=== PATIENT | female | born 1980 | race Caucasian/White ===

== ENCOUNTER → 2023-04-22 | Outpatient (CLI) | payer OTHER ==
[2023-04-27 16:09] LABS: HPV 16 Negative (Negative); HPV 18 Negative (Negative); HPV OTHER HR TYPES Negative (Negative)
== END | disposition home or self-care (01) ==
LOC: LAB SHORT 19:03 → LAB 19:03
PROVIDERS: Obstetrics & Gynecology
DX: Z01.419 Encounter for gynecological examination (general) (routine) without abnormal findings (principal)
CPT/HCPCS: 87624; G0145

== ENCOUNTER 2023-04-30 05:47 | Emergency (ER) | payer OTHER ==
[~2023-04-30] VITALS: Ht 162.6 cm; Wt 72.6 kg
[2023-04-30 06:28] LABS: Hematocrit 48.9 % (33.0-51.0); Hemoglobin 16.6 g/dL (11.5-16.0); Mean Corpuscular HGB 31.6 pg (26.0-34.0); Mean Corpuscular HGB Conc 33.9 g/dL (31.5-36.5); Mean Corpuscular Volume 93 fL (80-100); Mean Platelet Volume 9.4 fL (9.1-12.4); Platelet Count 229 K/mm3 (150-400); RDW Coefficient Variation 12.2 % (11.7-14.2); RDW Standard Deviation 42.2 fL (35.1-46.3); Red Blood Cell Count 5.26 M/mm3 (3.80-5.20); White Blood Cell Count 7.97 K/mm3 (4.00-11.30)
[2023-04-30 06:48] LABS: Albumin, Blood 4.6 g/dL (3.4-5.0); Bilirubin, Total 0.7 mg/dL (0.1-1.0); Bun/Creatinine Ratio 10.2 (12.0-20.0); Calcium, Blood 9.8 mg/dL (8.5-10.1); Creatinine, Blood 2.16 mg/dL (0.40-1.00); Globulin, Blood 4.8 g/dL (2.2-4.0); Potassium, Blood 4.5 mmol/L (3.5-5.5); Total Protein, Blood 9.4 g/dL (6.4-8.2)
[2023-04-30 07:02] LABS: BAND PERCENT MAN 11 % (0-8); BASOPHILS PERCENT MAN 0 % (0-2); EOSINOPHILS PERCENT MAN 0 % (0-6); LYMPHOCYTES ABSOLUTE MAN 0.15 K/mm3 (0.84-5.20); LYMPHOCYTES PERCENT MAN 2 % (21-46); MONOCYTES ABSOLUTE MAN 0.15 K/mm3 (0.16-1.47); MONOCYTES PERCENT MAN 2 % (4-13); NEUTROPHILS ABSOLUTE MAN 7.65 K/mm3 (1.96-9.15); SEG NEUTROPHILS PERCENT MAN 85 % (41-73); TOTAL CELLS COUNTED 100
[2023-04-30 12:03] LABS: Source, Urine Clean Catch
[2023-04-30 12:06] LABS: Bilirubin, Urine Neg (Neg); Blood, Urine 2+ (Neg); Color, Urine Yellow (P-Yellow); Glucose Qualitative, Urine Neg (Neg); Ketones, Urine Neg (Neg); Leukocyte Esterase, Urine Neg (Neg); Nitrite, Urine Neg (Neg); Protein, Urine 1+ (Neg); Urobilinogen, Urine NORM (Normal)
[2023-04-30 12:14] VITALS: BP 117/79
[2023-04-30 12:14] LABS: Appearance, Urine Hazy (Clear)
[2023-04-30 12:15] LABS: White Blood Cells, Urine 0-2 /hpf (0-5)
[2023-04-30 12:16] LABS: Bacteria Rare /hpf; Squamous Epithelial Cells Few /hpf (Few)
[2023-04-30 12:20] LABS: Granular Casts 0-2 /lpf (0); Mucus Mod (0-Heavy)
[2023-04-30] MEDS ORDERED: ONDA4ODT MM (12:32)
== END 2023-04-30 12:51 | disposition home or self-care (01) ==
LOC: ER 05:47
PROVIDERS: Emergency Medicine
DX: N17.9 Acute kidney failure, unspecified (principal); E86.0 Dehydration; R19.7 Diarrhea, unspecified; Z91.040 Latex allergy status
CPT/HCPCS: 76770; 80053; 81001; 84703; 85025; 93005; 93010; 96361; 96374; 99284-25; A9270; J2405; J7030; J7120

== ENCOUNTER → 2023-07-29 | Outpatient (CLI) | payer OTHER ==
[~2023-07-29] MED LIST: ONDA4ODT MM
[2023-07-30 12:29] LABS: Adenovirus F 40/41 Not Detected (NOT DETECT); Astrovirus Not Detected (NOT DETECT); Campylobacter Sp Not Detected (NOT DETECT); Cryptosporidium Not Detected (NOT DETECT); Cyclospora Cayetanensis Not Detected (NOT DETECT); E. Coli O157 Not Detected (NOT DETECT); Entamoeba Histolytica Not Detected (NOT DETECT); Enteroaggregative E. coli-EAEC Not Detected (NOT DETECT); Enteropathogenic E. coli-EPEC Not Detected (NOT DETECT); Enterotoxigenic E. coli-ETEC Not Detected (NOT DETECT); Giardia Lamblia Not Detected (NOT DETECT); Norovirus GI/GII Not Detected (NOT DETECT); Plesiomonas Shigelloides Not Detected (NOT DETECT); Rotavirus A Not Detected (NOT DETECT); Salmonella Sp Not Detected (NOT DETECT); Sapovirus Not Detected (NOT DETECT); Shiga Toxin-prod E. coli-STEC Not Detected (NOT DETECT); Shigella/Enteroin E. coli-EIEC Not Detected (NOT DETECT); Vibrio Cholerae Not Detected (NOT DETECT); Vibrio Sp Not Detected (NOT DETECT); Yersinia Enterocolitica Not Detected (NOT DETECT)
[2023-08-03 02:52] LABS: PANCREATIC ELASTASE,FECAL 626 ug/g (>=100)
[2023-08-03 15:04] LABS: CALPROTECTIN,FECAL 8 ug/g (<=49)
== END ==
LOC: LAB 07:30 → LAB SHORT 07:30 → LAB FUT 07-27 15:30
PROVIDERS: Family Medicine
DX: K52.9 Noninfective gastroenteritis and colitis, unspecified (principal); R63.1 Polydipsia; R35.89 Other polyuria; E83.39 Other disorders of phosphorus metabolism; L29.9 Pruritus, unspecified
CPT/HCPCS: 82653; 83993; 87507

== ENCOUNTER → 2024-04-10 | Outpatient (CLI) | payer OTHER | LOC: LAB SHORT 10:15 → LAB 10:15 | DX: R30.0 Dysuria (principal) | CPT/HCPCS: 87086 ==

== ENCOUNTER → 2024-04-25 | Outpatient (CLI) | payer OTHER ==
[2024-04-25 14:27] LABS: Adenovirus F 40/41 Not Detected (NOT DETECT); Astrovirus Not Detected (NOT DETECT); Campylobacter Sp Not Detected (NOT DETECT); Cryptosporidium Not Detected (NOT DETECT); Cyclospora Cayetanensis Not Detected (NOT DETECT); E. Coli O157 Not Detected (NOT DETECT); Entamoeba Histolytica Not Detected (NOT DETECT); Enteroaggregative E. coli-EAEC Not Detected (NOT DETECT); Enteropathogenic E. coli-EPEC Not Detected (NOT DETECT); Enterotoxigenic E. coli-ETEC Not Detected (NOT DETECT); Giardia Lamblia Not Detected (NOT DETECT); Norovirus GI/GII Not Detected (NOT DETECT); Plesiomonas Shigelloides Not Detected (NOT DETECT); Rotavirus A Not Detected (NOT DETECT); Salmonella Sp Not Detected (NOT DETECT); Sapovirus Not Detected (NOT DETECT); Shiga Toxin-prod E. coli-STEC Not Detected (NOT DETECT); Shigella/Enteroin E. coli-EIEC Not Detected (NOT DETECT); Vibrio Cholerae Not Detected (NOT DETECT); Vibrio Sp Not Detected (NOT DETECT); Yersinia Enterocolitica Not Detected (NOT DETECT)
[2024-04-27 16:40] LABS: CALPROTECTIN,FECAL <5 ug/g (<=49)
[2024-04-28 04:12] LABS: PANCREATIC ELASTASE,FECAL >800 ug/g (>=100)
== END ==
LOC: LAB 07:45 → LAB SHORT 07:45
PROVIDERS: Family Medicine
DX: K52.9 Noninfective gastroenteritis and colitis, unspecified (principal)
CPT/HCPCS: 82653; 83993; 87507

== ENCOUNTER → 2025-02-15 | Outpatient (CLI) | payer OTHER | LOC: LAB 08:15 → LAB SHORT 08:15 | DX: N92.0 Excessive and frequent menstruation with regular cycle (principal) | CPT/HCPCS: 88305 ==

== ENCOUNTER 2025-04-05 06:09 | Day surgery (SDC) | payer OTHER ==
[2025-04-05] VITALS (10 sets, daily range): BP systolic 124–147; BP diastolic 72–99
[~2025-04-05] VITALS: Ht 162.6 cm; Wt 75.4 kg
[~2025-04-05 06:09] MED LIST changes: +CRYSELLE-28 TA1 EACH PO; +IBUP800 PO; +OXYC5 PO
[2025-04-05] MEDS ORDERED: CeFAZolin Sodium 2,000 MG in NS 100 ML IV SCH (06:30)
[2025-04-05] MEDS ORDERED: Midazolam HCl 1MG / ML 2ML Vial ONE (06:55)
[2025-04-05] MEDS ORDERED: Rocuronium Bromide 10 MG/ML 5ML Injection IV ONE ×2 (06:55→08:01)
[2025-04-05] MEDS ORDERED: Dexamethasone Sod Phos 10 MG/ML 1ML VIAL ONE (06:55)
[2025-04-05] MEDS ORDERED: FentaNYL Citrate 50 MCG/ML 2 ML Injection ONE (06:55)
[2025-04-05] MEDS ORDERED: Ondansetron HCl 2 MG / ML 2ML Vial ONE (06:55)
[2025-04-05] MEDS ORDERED: Glycopyrrolate 0.2 MG/ML 5ML VIAL ONE (06:55)
[2025-04-05] MEDS ORDERED: Bupivacaine 0.5% W/EPI 1:200000 SDV 30 ML Vial ONE (07:06)
[2025-04-05] MEDS ORDERED: Sugammadex Sodium 200 MG/2ML SDV (100 MG/ML) ONE (08:01)
[2025-04-05] MEDS ORDERED: Ketorolac Tromethamine 30mg Vial ONE (08:01)
[2025-04-05] MEDS ORDERED: Albuterol 2.5 MG/3 ML VIAL INH PRN (08:10)
[2025-04-05] MEDS ORDERED: Phenylephrine HCl 100 MCG/ML-NS 10MLSYR (1MG/10ML) ONE (08:10)
[2025-04-05] MEDS ORDERED: ePHEDrine Sulfate 50 MG/ML 1ML Injection IV PRN (08:10)
[2025-04-05] MEDS ORDERED: FentaNYL Citrate 50 MCG/ML 2 ML Injection IV PRN ×2 (08:10→08:15)
[2025-04-05] MEDS ORDERED: HYDROmorphone HCl/Pf 1MG SYR IV PRN ×3 (08:15→09:15)
[2025-04-05] MEDS ORDERED: Metoclopramide HCl 5MG / ML 2ML Vial IV PRN ×2 (08:15→09:10)
[2025-04-05] MEDS ORDERED: HydrALAZINE HCl 20 MG / ML 1ML Vial IV PRN (08:15)
[2025-04-05] MEDS ORDERED: Ondansetron HCl 2 MG / ML 2ML Vial IV PRN ×2 (08:15→09:10)
[2025-04-05] MEDS ORDERED: HYDROmorphone HCl/Pf 1MG SYR ONE (08:51)
[2025-04-05] MEDS ORDERED: FLU VACC TS2025-26(6MOS UP)/PF 45 MCG/0.5 ML SYRINGE IM SCH (09:05)
[2025-04-05] MEDS ORDERED: Naloxone HCl 0.4MG / ML 1ML Vial IV PRN (09:10)
[2025-04-05] MEDS ORDERED: Ketorolac Tromethamine 30mg Vial IV PRN (09:35)
--- NOTE | 2025-04-05 09:55 | NUR ---
POST-OP PATIENT ARRIVES TO ROOM 208 @ 0945. ROBOTIC LAOP HYSTER, LAP SITES X4 WITH WOUND GLUE ARE C/D/I. CARYN PAD IN PLACE WITH SCANT DRNG. DENIES PAIN AND NAUSEA AT THIS TIME. VSS, FAMILY IN ROOM AND CALL LIGHT IN REACH.
[2025-04-05] MEDS ORDERED: SIME80CH PO (11:16)
[2025-04-05] MEDS ORDERED: Acetaminophen325 M1 PO (11:17)
--- NOTE | 2025-04-05 15:32 | NUR ---
DISCHARGE PATIENT ABLE TO TOLERATE PO INTAKE. VOIDING, WITH MINIMAL RESIDUAL. PAIN IS MANAGED WELL. LAP SITES ARE C/D/I. VSS. ALL INSTRUCTIONS READ AND SIGNED. IV TAKEN OUT INTACT. WHEELED OUT TO AWAITING CAR.
== END 2025-04-05 13:30 | disposition home or self-care (01) ==
LOC: ORSCMMR 06:09 → ORD 07:30 → ORSCMMR 07:30 → SURS 09:35 → ORSCMMR 13:30 → SURS 13:30
PROVIDERS: Obstetrics & Gynecology
PROC: 0UT9FZZ Resection of Uterus, Via Natural or Artificial Opening With Percutaneous Endoscopic Assistance (ICD-10-PCS; principal; 2025-04-05 07:30)
PROC: 0UT7FZZ Resection of Bilateral Fallopian Tubes, Via Natural or Artificial Opening With Percutaneous Endoscopic Assistance (ICD-10-PCS; principal; 2025-04-05 07:30)
DX: N92.0 Excessive and frequent menstruation with regular cycle (principal); N80.03 Adenomyosis of the uterus; D25.0 Submucous leiomyoma of uterus; N94.6 Dysmenorrhea, unspecified; N84.0 Polyp of corpus uteri; N80.329 Endometriosis of the posterior cul-de-sac, unspecified depth; Z79.899 Other long term (current) drug therapy
CPT/HCPCS: 86850; 86900; 86901; 88307; J0690; J1100; J1171; J1885; J2250; J2371; J2405; J2704; J3010; J7120